=== PATIENT | female | born 1985 | race Caucasian/White ===

== ENCOUNTER 2021-02-22 14:58 | Emergency (ER) | payer BC, SELFPAY ==
[2021-02-22 15:10] VITALS: BP 120/76; PULSE 88; RESP 16; TEMP 37.1; O2SAT 98
--- NOTE | 2021-02-22 15:13 | ED.SKABFB ---
HPI - Skin/Abscess/Foreign Bdy General Chief complaint: Skin/Abscess/Foreign Body Stated complaint: Rash on right side of Neck and right Arm Time Seen by Provider: 02/22/21 15:26 Source: patient and RN notes reviewed Mode of arrival: ambulatory Limitations: no limitations History of Present Illness HPI narrative: 35-year-old female presents with concern for rash to the right side of her neck, reports it spreading to her arm. Reports the rash is itchy, today starting to be slightly painful. She denies any known exposure to allergens. Denies exposure to poison scott. Reports she is taking Benadryl and using hydrocortisone cream with no relief. She denies any trouble breathing, difficulty swallowing, fever, nausea, or diarrhea, vomiting. MD complaint: rash Related Data Home Medications Medication Instructions Recorded Confirmed Skyrizi IM [id number] 02/22/21 spironolactone 150 mg PO DAILY 02/22/21 02/22/21 Allergies Allergy/AdvReac Type Severity Reaction Status Date / Time Iodine and Iodide Containing Allergy Rash Verified 02/22/21 15:16 Produc Review of Systems Review of Systems: CONSTITUTIONAL: Denies malaise, chills, sweats, or fever. ENT: Denies swollen lips, swollen tongue RESP: Denies dyspnea SKIN: Reports itchy rash to the right side of the neck spreading to the right inner arm MUSCULOSKELETAL: Denies myalgia. All systems reviewed & are unremarkable except as noted in HPI and below PMFSH Comments At time of signature, agree with nursing past medical, surgical, social and family history. There is no relevant family history pertinent to the presenting complaint Exam Narrative: GENERAL: Well-appearing, well-nourished, and in no acute distress. HEAD: Normocephalic, atraumatic. EYES: PERRLA, conjunctivae clear ENT: Mucous membranes moist NECK: Supple. No lymphadenopathy CHEST: Clear to auscultation. No respiratory distress. HEART: Regular rate and rhythm. SKIN: Warm, dry. Erythematous maculopapular patch on the right neck, satellite papules noted to the right arm NEURO: Alert and oriented x3. PSYCH: Normal mood and affect Course Course Emergency Course: Patient is aware of diagnosis, understands and agrees to treatment plan. Anticipatory guidance given. Patient agrees to follow-up as directed and is aware of reasons to seek care at the emergency department. Portions of this record may have been created with voice recognition software Vital Signs Vital signs: Reviewed. MDM - Skin/Abscess/Foreign Bdy MDM Narrative Medical decision making narrative: Does not appear at this time to be erythema multiforme, bullous, SJS, TEN; no evidence at this time to suggest RMSF, endocarditis or Lyme disease; patient looks well, nontoxic and is tolerating oral intake; no neurologic signs or symptoms; no headache, photophobia or neck pain; afebrile; appropriate for initial outpatient treatment; discussed the importance of follow-up, patient agrees; question, viral exanthema, contact dermatitis, allergic dermatitis, eczema, urticaria, shingles. No soft palate or uvula edema, no tongue, lip edema or other mucosal involvement, no respiratory compromise, no stridor, no wheezing, no wheezing, no history of syncope, no hypotension, no nausea, vomiting, or diarrhea. Instructed patient to go to nearest ER immediately for any worsening symptoms including but not limited to: fever, spreading rash, pain, sore throat, headache, dizziness, chest pain, trouble breathing, or any symptoms concerning to the patient. Critical Care Time Critical Care Time Critical Care Time: No Discharge Plan Discharge Clinical Impression: Contact dermatitis Qualifiers: Contact dermatitis type: unspecified Contact dermatitis trigger: unspecified trigger Qualified Code(s): L25.9 - Unspecified contact dermatitis, unspecified cause Patient Disposition: Home, Self-Care Condition: Stable Instructions: Contact Dermatitis (ED) Additional Instructions
[2021-02-22 15:21] VITALS: BP 120/76; PULSE 88; RESP 16; TEMP 37.1; O2SAT 98
== END 2021-02-22 15:35 | disposition home or self-care (01) ==
PROVIDERS: Emergency Provider Nurse Practitioner; PCP Nurse Practitioner
DX: L25.9 Unspecified contact dermatitis, unspecified cause (principal)
CPT/HCPCS: 99213; G0463

== ENCOUNTER 2022-01-17 12:40 | Emergency (ER) | payer OTHER, SELFPAY ==
--- NOTE | ~2022-01-17 | XR_ITS ---
XR wrist RT 2V DATE: 01/17/2022 14:46 INDICATION: Postoperative reduction examination TECHNIQUE: AP and lateral views COMPARISON: 01/17/2022 prereduction radiographs FINDINGS: There is 2 mm dorsal displacement and approximately 20 degrees apex anterior angulation at the comminuted intra-articular fracture of the distal radius, with associated dorsal inclination of t he distal radial articular surface. Transverse fracture at the base of the ulnar styloid process. Radiocarpal alignment is preserved. IMPRESSION: 2 mm dorsal displacement and 20 degrees apex anterior angulation and comminuted intra-art icular fracture of distal radius Reviewed, dictated and finalized at location A. IMPRESSION: 2 mm dorsal displacement and 20 degrees apex anterior angulation an d comminuted intra-articular fracture of distal radius
--- NOTE | ~2022-01-17 | XR_ITS ---
EXAMINATION: XR wrist RT min 3V INDICATION: Right wrist pain, initial encounter TECHNIQUE: Four views of the right wrist are obtained. COMPARISON: None available FINDINGS: There is an acute, traumatic, closed, comminuted intra-articular fracture of the distal rad ius. There are 35 degrees of dorsal angulation at the fracture site. The distal fracture fragment is dorsally displaced approximately 2 mm. There is a transverse ulnar styloid avulsion. Soft tissue swel ling surrounds the fractures. No additional fracture is identified. IMPRESSION: 1. Comminuted intra-articular fracture at the distal radius with dorsal angulation. 2. Ulnar styloid avulsion. Reviewed, dictated and finalized at location F. IMPRESSION: 1. Comminuted intra-articular fracture at the distal radius with dorsal angulat ion. 2. Ulnar styloid avulsion.
[2022-01-17 12:40] VITALS: BP 151/80; PULSE 116; RESP 14; TEMP 36.4; O2SAT 100
--- NOTE | 2022-01-17 14:20 | ED.UPPEXIN ---
HPI - Extremity Injury (Upper) General Chief Complaint: Extremity Injury, Upper Stated Complaint: slipped in bathroom Time Seen by Provider: 01/17/22 13:18 History of Present Illness HPI narrative: 36-year-old female presents emergency room for evaluation of right wrist pain. Patient states that she lost her footing and fell backward onto outstretched arm. Patient states pain is located over her distal radius, and pain is worse with movement. Related Data Home Medications Medication Instructions Recorded Confirmed Skyrizi IM [id number] 02/22/21 spironolactone 150 mg PO DAILY 02/22/21 02/22/21 Allergies Allergy/AdvReac Type Severity Reaction Status Date / Time Iodine and Iodide Containing Allergy Rash Verified 02/22/21 15:16 Produc Review of Systems Review of Systems: CONSTITUTIONAL: Denies fever, chills, or sweats. EYES: Denies visual changes, redness, or discharge. ENT: Denies rhinorrhea, congestion, sore throat, or otalgia. CARDIOVASCULAR: Denies chest pain, palpitations, or edema. RESPIRATORY: Denies cough or dyspnea. GASTROINTESTINAL: Denies abdominal pain, nausea, vomiting, or diarrhea. GENITOURINARY: Denies dysuria or hematuria. SKIN: Denies rash or itching. MUSCULOSKELETAL: Right wrist pain NEUROLOGIC: Denies headache, numbness, dizziness, or weakness. PSYCHIATRIC: Denies anxiety or depression. Exam Narrative: GENERAL: Well-appearing, well-nourished, no physical limitations, and in no acute distress. HEAD: Normocephalic, atraumatic. EYES: Conjunctivae normal, PERRLA and EOMI. CHEST: Clear to auscultation. No respiratory distress. No wheezes rales or rhonchi. No tenderness. HEART: Regular rate and rhythm. No murmur heard. Normal peripheral pulses. EXTREMITIES: Right wrist: Abnormal bony abnormality distal right radius, soft tissue swelling positive tenderness to palpation. Positive snuffbox tenderness. Limited range of motion due to pain and bony abnormality. Neurovascular is intact distally SKIN: Warm, dry, no rash. No noted wounds NEURO: No focal deficits. Alert and oriented x3. MAEW. CN's II-XI intact bilaterally, normal gait PSYCH: Cooperative. Normal mood and affect. Course Vital Signs Vital signs: Vital Signs Temperature 36.4 C L 01/17/22 12:40 Pulse Rate 116 H 01/17/22 12:40 Respiratory Rate 14 01/17/22 12:40 Blood Pressure 151/80 H 01/17/22 12:40 Pulse Oximetry 100 01/17/22 12:40 Oxygen Delivery Room Air 01/17/22 12:40 Temperature 36.4 C L 01/17/22 12:40 Pulse Rate 116 H 01/17/22 12:40 Respiratory Rate 14 01/17/22 12:40 Blood Pressure 151/80 H 01/17/22 12:40 Pulse Oximetry 100 01/17/22 12:40 Oxygen Delivery Room Air 01/17/22 12:40 Procedures Orthopedic Joint Reduction Joint #1: Orthopedic Joint Reduction Date: 01/17/22 Orthopedic Joint Reduction Time: 14:56 Time Out Performed: Yes Side: right Joint Reduction Location: wrist Analgesia: other Pre-Procedure Neuro Vascular Exam: normal Local Anesthesia: none Technique used: direct manipulation Post-reduction neuro exam: intact Post-reduction vascular: intact Post Reduction X-Ray Obtained: Yes Post Reduction X-Ray Results: reduced Splint Applied: Yes Patient Tolerated Procedure: well Discharge Plan Discharge Clinical Impression: Fracture of wrist Patient Disposition: Home, Self-Care Condition: Stable Instructions: Antibiotic Form Prescriptions: New hydrocodone-acetaminophen 5-325 mg tablet 1 tablet PO Q6H PRN (Reason: pain) Qty: 15 0RF No Action Skyrizi IM [id number] spironolactone 150 mg PO DAILY prednisone 20 mg tablet 40 mg PO DAILY 5 Days Qty: 10 0RF triamcinolone acetonide 0.1 % cream 1 applic TOPICAL BID 7 Days Qty: 80 0RF Follow-up/Referrals: Dian,CARA Kwong [Primary Care Provider] - Ryan Felix MD [Physician] - Time
[2022-01-17] MEDS: fentaNYL CITRATE INJ (*CRX) 100 MCG/2 ML VIAL 50 MCG IV PUSH (14:27)
--- NOTE | 2022-01-17 14:49 | PC.NURSE ---
medical administrative technician at bedside to apply ordered splint to R wrist.
[2022-01-17 15:45] VITALS: BP 150/94; PULSE 84; RESP 16; O2SAT 99
== END 2022-01-17 15:48 | disposition home or self-care (01) ==
PROVIDERS: Emergency Provider Nurse Practitioner Family; PCP Nurse Practitioner
DX: S62.109A Fracture of unspecified carpal bone, unspecified wrist, initial encounter for closed fracture (principal); W18.30XA Fall on same level, unspecified, initial encounter
CPT/HCPCS: 25605; 73100; 73110; 96374; 99285; A4565; J3010

== ENCOUNTER → 2022-10-31 11:13 | Outpatient (CLI) | payer OTHER, SELFPAY ==
--- NOTE | ~2022-10-31 | US_ITS ---
EXAMINATION: US transvaginal DATE: 10/31/2022 11:36 INDICATION: Missing IUD strings Comparison:No prior studies for comparison. TECHNIQUE: Multiple endovaginal sonographic images of the pelvis performed. FINDINGS: The uterus measures 7.3 x 3.2 x 3.8 cm. There is an IUD present in the endometrium. The end ometrial complex measures 5 mm. The right ovary measures 2.3 x 2.1 x 1.6 cm and the left ovary measures 2.8 x 2.6 x 2.2 cm. There ar e small follicles in each ovary. Normal doppler signal in both ovaries. There is no free fluid in the pelvis. There are no abnormal masses seen on either side. IMPRESSION: 1. IUD present in the endometrium. Unremarkable pelvic ultrasound otherwise. Reviewed, dictated and finalized at location B.
== END ==
PROVIDERS: PCP Nurse Practitioner; Visit Provider Nurse Practitioner
DX: T83.32XA Displacement of intrauterine contraceptive device, initial encounter (principal)
CPT/HCPCS: 76830